=== PATIENT | female | born 1955 | race Caucasian/White ===

== ENCOUNTER → 2017-09-17 09:41 | Outpatient (CLI) | payer OTHER, SELFPAY ==
--- NOTE | 2017-09-17 09:47 | CT_ITS ---
STUDY: CT ABDOMEN AND PELVIS WITH AND WITHOUT CONTRAST REASON FOR EXAM: Female, 62 years old. Chronic hematuria. RADIATION DOSAGE (If Supplied By Facility): CTDIvol = ( 18.91 ) mGy, DLP = ( 2413.49 ) mGycm TECHNIQUE: Transaxial images were obtained from the dome of the diaphragm to the symphysis pubis without oral contrast. 100 ml of Isovue 300 contrast was administered. Sagittal and coronal images were reconstructed. Individualized dose optimization techniques were used for this CT. COMPARISON: Comparison is made with prior examination dated February 10, 2007. FINDINGS: Minimal linear scarring at the left lung base. The visualized portions of the heart are within normal limits. There is decreased attenuation of the liver consistent with steatosis. Normal gallbladder and extrahepatic biliary system. Normal spleen. Normal pancreas. There is a small, circumscribed, smooth, low attenuation left adrenal mass, consistent with an adrenal adenoma. This measures 1.5 cm. This is essentially unchanged as compared to prior study. Normal right adrenal gland. There is a 2.6 cm x 2.1 cm cyst in the midportion of the right kidney laterally. Stable right parapelvic cyst. Stable left parapelvic cysts. No abnormal renal calcification is seen. Normal visualized stomach. Normal small intestine. There are multiple colonic diverticula consistent with diverticulosis. There is non-visualization of the appendix. There is scattered atherosclerotic calcification of the abdominal aorta, without a demonstrated aneurysm. Normal inferior vena cava. Normal retroperitoneum. Normal urinary bladder. There is absence of the uterus consistent with a prior hysterectomy. Normal abdominal wall. Disc space narrowing and subchondral sclerosis at the L4-L5 level. CT/CT Abd/Pelvis W/WO Contrast IMPRESSION: Fatty infiltration of the liver. Bilateral parapelvic cysts. Right renal cyst. No renal calcification or ureteral calcification is seen. Electronically Signed: Abbe Read MD at 11:21 EDT Tel [phone], Service support ,
[2017-09-17 13:06] LABS: CREATININE FINGERSTICK 0.8 mg/dL (0.55-1.02); EGFR FINGERSTICK > 60.0000 mL/min (>60)
== END ==
PROVIDERS: Family Provider Family Medicine; PCP Family Medicine; Visit Provider Urology
DX: R31.0 Gross hematuria (principal)
CPT/HCPCS: 74178; Q9967

== ENCOUNTER → 2017-09-19 09:16 | Outpatient (CLI) | payer OTHER, SELFPAY ==
--- NOTE | 2017-09-19 | CYSPIN_PTH ---
PATIENT: TREMAINE MARTE LOC: LAB U#:[id number] AGE/SX: 69/F ROOM: RE09/19/[address]: Dr. Bev Healy MD : 1955 BED: DIS: SPEC #: [id number] RECD: 09/19/17 13:55 STATUS: TEJAL MIRELLA #: [id number] POOJA: 09/19/17 00:[address]: Bev Healy DEPT: CYTOLOGY RECD BY: Flo Alanis ENTERED: 09/19/17 13:55 SP TYPE: CYSPIN FL OTHR DR: Dr. Ford Goldman MD Tissues: Urine Procedures: Pap Stain (control) Special Stain Group II Cytospin Fluid HEADER OPERATION: Not noted PRE-OP DIAGNOSIS: Gross hematuria TISSUE SUBMITTED: Urine for cytology DIAGNOSIS CYTOLOGY Urine for cytology (cytospin): Negative for malignant cells. SJ:mi 09/22/17 CYTOLOGY STUDY Slides are reviewed. CYTOLOGY GROSS Received is 20 ml of gold clear fluid labeled with the patient's name and and designated per the requisition as urine. Submitted for cytology. 09/19/17 TC:5 CPT: 26302
[2017-09-19 09:29] LABS: Cytology, Body Fluid / CSF SEE PATHOLOGY REPORT
[2017-09-19 10:07] LABS: Potassium 4.8 mmol/L (3.5-5.1)
== END ==
PROVIDERS: Family Provider Family Medicine; PCP Family Medicine; Visit Provider Urology
DX: N32.89 Other specified disorders of bladder (principal); R31.0 Gross hematuria
CPT/HCPCS: 36415; 84132; 88108; 88313

== ENCOUNTER 2017-09-30 06:20 | Day surgery (SDC) | payer OTHER, SELFPAY ==
--- NOTE | 2017-09-23 06:52 | EKG12_ITS ---
Test Reason : PREOP Blood Pressure : / mmHG Vent. Rate : 071 BPM Atrial Rate : 071 BPM P-R Int : 192 ms QRS Dur : 078 ms QT Int : 400 ms P-R-T Axes : 067 037 050 degrees QTc Int : 434 ms Normal sinus rhythm Normal ECG Confirmed by RONN DISLA, TAI ([id number]), editorial assistant CAROLYN WHEATLEY ([id number]) on 09/24/2017 2:08:28 PM Referred By: Bev Healy Confirmed By:TAI BRODY MD
[2017-09-23 07:13] LABS: Absolute Lymphocyte Count 2.92 X10^3/ul (0.83-4.51); Absolute Neutrophil Count 5.3 X10^3/uL (2.0-7.7); Basophil# 0.03 X10^3/uL; Basophil% 0.3 % (0-1); Eosinophil# 0.39 X10^3/uL; Eosinophils% 4.1 % (0-5); Hematocrit 41.4 % (37-47); Hemoglobin 13.9 g/dl (12.0-15.0); Lymphocyte # 2.92 X10^3/ul (4.0); Lymphocyte % 30.5 % (19-41); Mean Corp Hgb Conc 33.6 g/gl (32-36); Mean Corpuscular Hgb 31.6 pg (27.0-32.0); Mean Corpuscular Volume 94.1 fL (81-99); Mean Platelet Vol. 9.6 fl (6.2-12.0); Monocyte# 0.96 X10^3/uL; Neutrophil # 5.26 X10^3/uL (2.7-7.7); POSITIVE COUNT NO; POSITIVE DIFFERENTIAL NO; POSITIVE MORPHOLOGY NO; Platelet Count 341 K/mm3 (150-450); RBC Distribution Width CV 12.8 % (11.6-14.6); RBC Distribution Width SD 44.2 fl (35.1-43.9); White Blood Count 9.6 K/mm3 (4.4-11.0)
[2017-09-23 07:17] LABS: Color, Urine Yellow (Yellow); Glucose, Dipstick NEGATIVE (Normal); Ketone-Dipstick Negative (Negative); Leukocyte Esterase-Dipstick Negative /ul (Negative); Nitrite-Dipstick Negative (Negative); Occult Blood-Urine 25 /ul (Negative); Protein-Dipstick Negative (Negative); Specific Gravity, Urine 1.015 (1.002-1.030); Urine Bilirubin Dipstick Negative (Negative); Urine Clarity Clear (Clear); Urine Urobilinogen Normal (Normal)
[2017-09-23 07:46] LABS: Anion Gap 6 (5-15); BUN 12 mg/dL (7-18); BUN/Creat Ratio 15.1 RATIO (10-20); Calcium,Total 8.8 mg/dL (8.5-10.1); Chloride 106 mmol/L (98-107); EST Glomerular Filtration Rate 78 mL/min (>60); Est Glom Filt Rate - Afr Amer 94 mL/min (>60); Glucose 104 mg/dL (74-106); Potassium 4.1 mmol/L (3.5-5.1); Sodium Level 140 mmol/L (136-145)
[2017-09-27 09:09] LABS: Cortisol, Urinary Free 15 ug/L (Undefined)
[2017-09-29 12:29] LABS: Cortisol, Free 24Ur 23 ug/24 hr (0-50)
--- NOTE | 2017-09-30 | IMM_PTH ---
PATIENT: TREMAINE MARTE [place] [facility] [place][id number] AGE/SX: 62/F ROOM: RE09/30/[address]: Dr. Bev Healy MD : 1955 BED: DIS: 09/30/2017 SPEC #: [id number] RECD: 10/01/17 14:02 STATUS: TEJAL RELondon #: [id number] POOJA: 09/30/17 00:[address]: Bev Healy DEPT: IMMUNOHISTOCHEMISTRY RECD BY: Alanis Harden ENTERED: 10/01/17 14:04 SP TYPE: IMMUNO OTHR DR: Dr. Ford Goldman MD Tissues: Urinary bladder, NOS Procedures: CK20 (add) P53 (add) CK7 (initial) PHYSICIAN & INSTITUTION [place] [id number] SPECIMEN INFORMATION: Tissue Source: Bladder biopsy Clinical Info: Bladder lesion Specimen Number: [id number] CPT code: 83134, 87579 x2 METHODOLOGY: Deparaffinized sections of prefer/formalin-fixed tissue or PAP/DQ stained slides are incubated with monoclonal/polyclonal antibodies/oligonucleotide probes. Localization is made via biotin free immunoperoxidase method. Appropriate controls are performed and reacted as expected. Results on target cell population are indicated in the following table: RESULTS: ANTIBODY / CLONE RESULT CK7 (OV-TL12/30) positive CK20 (KS20.8) negative P53 (DO-7) positive These tests were developed and their performance characteristics determined by [facility]. They may not have been cleared or approved by the U.S. Food and Drug Administration. The FDA has determined that such clearance or approval is not necessary. 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 GISELLE:mi 10/02/17
[2017-09-30 06:37] VITALS: BP 133/79; PULSE 80; RESP 14; TEMP 36.1; O2SAT 97; BMI 28.8
--- NOTE | 2017-09-30 08:00 | BLA_PTH ---
PATIENT: TREMAINE MARTE [place]: [facility] [place][id number] AGE/SX: 62/F ROOM: RE09/30/[address]: Dr. Bev Healy MD : 1955 BED: DIS: 09/30/2017 SPEC #: [id number] RECD: 09/30/17 10:23 STATUS: TEJAL MIRELLA #: [id number] POOJA: 09/30/17 08:[address]: Bev Healy DEPT: SURGICAL PATHOLOGY RECD BY: Ross Bertrand ENTERED: 09/30/17 11:46 SP TYPE: BLADDER BX OTHR DR: Dr. 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 See comment. SJ:mi 10/01/17 COMMENT Immunohistochemistry ([id number]) supports the above diagnosis. MICROSCOPIC DESCRIPTION Slides are reviewed. GROSS DESCRIPTION Received in fixative is one container labeled with the patient's name and designated bladder biopsy. The specimen consists of two irregular fragments of lui soft tissue each measuring 0.1 cm in greatest dimension. The specimen is totally submitted in one cassette. / GISELLE:mi 09/30/17 TC:5 CPT: 58176 ADDENDUM ADDENDUM ADDENDUM 10/06/2017 10:19 ADDENDUM 10/06/2017 10:19 ADDENDUM 10/06/2017 10:19 ADDENDUM 10/06/2017 10:19 ADDENDUM 10/06/2017 10:19 Detrusor muscle is not present in the submitted specimen. This case is discussed with Dr. Bev Healy on 10/06/17.
[2017-09-30] MEDS: Cefazolin 2 GM in 0.9% Normal Saline 100 ML IV (08:07)
[2017-09-30] MEDS: Lubricating Jelly 60 GM Tube 30 GM TOPICAL (08:22)
[2017-09-30 08:41] VITALS: BP 102/72; BP 133/79; PULSE 80; RESP 16; TEMP 37.1; O2SAT 95
[2017-09-30 08:45] VITALS: BP 122/69; BP 133/79; PULSE 72; RESP 16; O2SAT 96
--- NOTE | 2017-09-30 08:57 | PCM.DC.URO ---
Discharge Activity: Return to Normal Activity - in 24 hours Call your doctor if you observe: Fever of 101 or Higher, Inability to urinate, Shortness of breath, Chest pain Allergies/Adverse Reactions: Allergies codeine Allergy (Verified 09/23/17 09:52) Unknown mannitol [From Reclast] Allergy (Verified 09/23/17 09:52) Other water for injection,sterile [From Reclast] Allergy (Verified 09/23/17 09:52) Other zoledronic acid [From Reclast] Allergy (Verified 09/23/17 09:52) Other flu vaccine Allergy (Uncoded 09/23/17 09:52) Unknown Medications to take at Discharge Zolmitriptan [Zomig] 1 tab PO PRN PRN 12/21/12 Amlodipine [Norvasc] 5 mg PO DAILY 09/23/17 Aspirin [Aspirin EC] 81 mg PO DAILY 09/23/17 Lorazepam [Ativan] 1 mg PO DAILY PRN PRN 09/23/17 Smz/Tmp Ds [Bactrim Ds] 1 tab PO BID 3 Days #6 tab 09/30/17 The following prescriptions were given: Smz/Tmp Ds [Bactrim Ds] 1 tab PO BID 3 Days #6 tab Primary Care Physician: Ford Goldman MD [Primary Care Provider] - Test Results: Test results from this visit will be discussed in further detail at your follow-up appointment, if applicable. Please Follow Up With: Bev Healy MD - in 1 week, call to make appt
[2017-09-30 09:00] VITALS: BP 115/71; BP 133/79; PULSE 69; RESP 16; O2SAT 94
--- NOTE | 2017-09-30 09:00 | DCINST_ITS ---
Discharge Activity: Return to Normal Activity - in 24 hours Call your doctor if you observe: Fever of 101 or Higher, Inability to urinate, Shortness of breath, Chest pain Allergies/Adverse Reactions: Allergies codeine Allergy (Verified 09/23/17 09:52) Unknown mannitol [From Reclast] Allergy (Verified 09/23/17 09:52) Other water for injection,sterile [From Reclast] Allergy (Verified 09/23/17 09:52) Other zoledronic acid [From Reclast] Allergy (Verified 09/23/17 09:52) Other flu vaccine Allergy (Uncoded 09/23/17 09:52) Unknown Medications to take at Discharge Zolmitriptan [Zomig] 1 tab PO PRN PRN 12/21/12 Amlodipine [Norvasc] 5 mg PO DAILY 09/23/17 Aspirin [Aspirin EC] 81 mg PO DAILY 09/23/17 Lorazepam [Ativan] 1 mg PO DAILY PRN PRN 09/23/17 Smz/Tmp Ds [Bactrim Ds] 1 tab PO BID 3 Days #6 tab 09/30/17 The following prescriptions were given: Smz/Tmp Ds [Bactrim Ds] 1 tab PO BID 3 Days #6 tab Primary Care Physician: Ford Goldman MD [Primary Care Provider] - Test Results: Test results from this visit will be discussed in further detail at your follow- up appointment, if applicable. Please Follow Up With: Bev Healy MD - in 1 week, call to make appt
--- NOTE | 2017-09-30 09:00 | PCM.IMDPSTOP ---
Immediate Post-Op Note Date of Procedure: 09/30/17 Primary Surgeon/Physician: Bev Healy MD furnace mason: Bev Healy Pre-Operative Diagnosis: bladder lesion, gross hematuria, recurrent urinary tract infections. Post-Operative Diagnosis: same as pre-op Surgery/Procedure Performed:: cystoscopy, bladder biopsy with fulguration Description of Surgical Findings:: Small left bladder wall lesion approximately 1 cm in size was biopsied with muscle and specimen and fulgurated for hemostasis and tissue treatment. Estimated Blood Loss: <5cc Specimen's removed: Bladder biopsy ?2 Type of Anesthesia:: General - Admit VTE Documentation VTE Mechan Device Prophylaxis: SCD's VTE Pharm Prophylaxis ordered?: No Reason prophylaxis not ordered:: Treatment Not Indicated
--- NOTE | 2017-09-30 09:03 | OP.PN_ITS ---
Immediate Post-Op Note Date of Procedure: 09/30/17 Primary Surgeon/Physician: Bev Healy MD utilization engineer: Bev Healy Pre-Operative Diagnosis: bladder lesion, gross hematuria, recurrent urinary tract infections. Post-Operative Diagnosis: same as pre-op Surgery/Procedure Performed:: cystoscopy, bladder biopsy with fulguration Description of Surgical Findings:: Small left bladder wall lesion approximately 1 cm in size was biopsied with muscle and specimen and fulgurated for hemostasis and tissue treatment. Estimated Blood Loss: <5cc Specimen's removed: Bladder biopsy ?2 Type of Anesthesia:: General - Admit VTE Documentation VTE Mechan Device Prophylaxis: SCD's VTE Pharm Prophylaxis ordered?: No Reason prophylaxis not ordered:: Treatment Not Indicated
--- NOTE | 2017-09-30 09:03 | PCM.OPRPT ---
Problem List (1) Lesion of bladder Status: Acute (2) Gross hematuria Status: Acute (3) Recurrent urinary tract infection Status: Acute Report of Operation Date of Procedure: 09/30/17 Pre-Operative Diagnosis: bladder lesion, gross hematuria, recurrent urinary tract infections. Post-Operative Diagnosis: same as pre-op Surgery/Procedure Performed:: cystoscopy, bladder biopsy with fulguration Description of Surgical Findings:: Small right bladder wall lesion approximately 1 cm in size was biopsied with muscle and specimen and fulgurated for hemostasis and tissue treatment. order processing clerk: Bev Healy Type of Anesthesia:: General Specimen's removed: Bladder biopsy ?2 Estimated Blood Loss (mL): <5cc Description of Procedure: The patient is a 62-year-old female seen in my office for evaluation of recurrent urinary tract infection, gross hematuria and a history of smoking. On evaluation with cystoscopy, a right bladder wall lesion was identified. After discussing all risks benefits and alternatives she agreed to proceed with surgical intervention with biopsy and fulguration. Patient was taken the operating room placed on the operating room table. Anesthesia monitored head neck area IV access and vital signs throughout the case. Once anesthesia was probably administered patient was placed in dorsal lithotomy position was prepped and draped in usual sterile fashion. Using a 70? lens a thorough cystoscopic evaluation was performed revealing only the right lateral wall lesion identified in the office. At this time using a 30? lens and a flexible biopsy forceps, 2 biopsies of this area were performed. The area of the biopsy and surrounding tissue was infiltrated for hemostatic control on tissue treatment. The patient tolerated the procedure well. Her bladder was then emptied and she was awakened and taken to recovery room in good condition. There were no complications during this procedure.
--- NOTE | 2017-09-30 09:07 | OP.PCM_ITS ---
Problem List (1) Lesion of bladder Status: Acute (2) Gross hematuria Status: Acute (3) Recurrent urinary tract infection Status: Acute Report of Operation Date of Procedure: 09/30/17 Pre-Operative Diagnosis: bladder lesion, gross hematuria, recurrent urinary tract infections. Post-Operative Diagnosis: same as pre-op Surgery/Procedure Performed:: cystoscopy, bladder biopsy with fulguration Description of Surgical Findings:: Small right bladder wall lesion approximately 1 cm in size was biopsied with muscle and specimen and fulgurated for hemostasis and tissue treatment. orderly: Bev Healy Type of Anesthesia:: General Specimen's removed: Bladder biopsy ?2 Estimated Blood Loss (mL): <5cc Description of Procedure: The patient is a 62-year-old female seen in my office for evaluation of recurrent urinary tract infection, gross hematuria and a history of smoking. On evaluation with cystoscopy, a right bladder wall lesion was identified. After discussing all risks benefits and alternatives she agreed to proceed with surgical intervention with biopsy and fulguration. Patient was taken the operating room placed on the operating room table. Anesthesia monitored head neck area IV access and vital signs throughout the case. Once anesthesia was probably administered patient was placed in dorsal lithotomy position was prepped and draped in usual sterile fashion. Using a 70 ? lens a thorough cystoscopic evaluation was performed revealing only the right lateral wall lesion identified in the office. At this time using a 30? lens and a flexible biopsy forceps, 2 biopsies of this area were performed. The area of the biopsy and surrounding tissue was infiltrated for hemostatic control on tissue treatment. The patient tolerated the procedure well. Her bladder was then emptied and she was awakened and taken to recovery room in good condition. There were no complications during this procedure.
[2017-09-30 09:11] VITALS: BP 124/79; BP 133/79; PULSE 67; RESP 16; TEMP 36.3; O2SAT 96
[2017-09-30 09:43] VITALS: BP 133/79
== END 2017-09-30 09:44 | disposition home or self-care (01) ==
LOC: SDC 06:21 → AC 06:21
PROVIDERS: Family Provider Family Medicine; PCP Family Medicine; Visit Provider Urology
PROC: 0TBB8ZX Excision of Bladder, Via Natural or Artificial Opening Endoscopic, Diagnostic (ICD-10-PCS; CPT 52204; principal; 2017-09-30 07:50)
DX: D41.4 Neoplasm of uncertain behavior of bladder (principal); Z87.440 Personal history of urinary (tract) infections; R31.0 Gross hematuria; Z79.82 Long term (current) use of aspirin; Z79.899 Other long term (current) drug therapy; F41.9 Anxiety disorder, unspecified; F32.9 Major depressive disorder, single episode, unspecified; G25.81 Restless legs syndrome; K58.9 Irritable bowel syndrome, unspecified; F17.200 Nicotine dependence, unspecified, uncomplicated; I10 Essential (primary) hypertension
CPT/HCPCS: 00910; 52204; 36415; 80048; 81002; 82530; 85025; 87086; 87088; 88305; 88341; 88342; 93005; J7120; J2405

== ENCOUNTER → 2018-01-22 10:19 | Outpatient (CLI) | payer OTHER, SELFPAY ==
--- NOTE | 2018-01-22 10:22 | BI_ITS ---
MAMMOGRAPHY - BILATERAL SCREENING REASON FOR EXAM: Female, 62 years old. Routine annual screening examination. PERTINENT HISTORY: Non-contributory. TECHNIQUE: Digital bilateral breast jl (3D mammographic acquisition) in the CC and MLO projections. 2-D mediolateral oblique (MLO) and craniocaudad (CC) views of both breasts were obtained. CAD: Full Field Digital Mammography with Computer Added Detection was performed. COMPARISON: Comparison made with prior study dated August 26, 2013 and March 06, 2010. FINDINGS: Breast Composition: There are scattered areas of fibroglandular density. There are no dominant masses or suspicious calcifications. A tissue clip marker is seen in the deep upper lateral aspect of the right breast. No other significant abnormalities are identified. There has been no significant change since the prior study. BI/SCREENING MAMM (CAD), BILAT IMPRESSION: Stable bilateral screening mammogram. Yearly follow-up mammogram recommended. (A) ASSESSMENT CATEGORY: BIRADS Category 2: Benign. A letter regarding these results will be sent to the patient by the facility within 30 days. Approximately 10% of breast cancers are not detected by mammography. A normal mammogram should not delay biopsy of a clinically suspicious abnormality. [id number] Electronically Signed: Abbe Read MD at 11:09 EST Tel [phone], Service support ,
== END ==
PROVIDERS: Family Provider Family Medicine; PCP Family Medicine; Referring Provider Family Medicine; Visit Provider Family Medicine
DX: Z12.31 Encounter for screening mammogram for malignant neoplasm of breast (principal)
CPT/HCPCS: 77063; 77067

== ENCOUNTER → 2019-01-21 13:22 | Outpatient (CLI) | payer OTHER, SELFPAY ==
[2019-01-21 15:39] LABS: Absolute Lymphocyte Count 3.55 X10^3/uL (0.83-4.51); Absolute Neutrophil Count 7.2 X10^3/uL (2.0-7.7); Basophil# 0.04 X10^3/uL; Basophil% 0.3 % (0-1); Eosinophil# 0.22 X10^3/uL; Eosinophils% 1.8 % (0-5); Hematocrit 39.7 % (37-47); Lymphocyte # 3.55 X10^3/ul (4.0); Lymphocyte % 29.7 % (19-41); Mean Corp Hgb Conc 32.7 g/dL (32-36); Mean Corpuscular Hgb 31.4 pg (27.0-32.0); Mean Corpuscular Volume 95.9 fL (81-99); Mean Platelet Vol. 10.6 fl (6.2-12.0); Monocyte# 0.92 X10^3/uL; Monocyte% 7.7 % (0-10); NRBC Flagged by Analyzer 0 % (0-5); Neutrophil # 7.19 X10^3/uL (2.7-7.7); Neutrophil % 60.2 % (47-70); Platelet Count 187 K/mm3 (150-450); RBC Distribution Width CV 13.2 % (11.6-14.6); RBC Distribution Width SD 46.2 fl (35.1-43.9); Red Blood Count 4.14 M/mm3 (4.2-5.4)
[2019-01-21 16:00] LABS: Anion Gap 9 (5-15); BUN 16 mg/dL (7-18); BUN/Creat Ratio 19.8 RATIO (10-20); Calcium,Total 8.5 mg/dL (8.5-10.1); Chloride 104 mmol/L (98-107); Creatinine, Serum 0.81 mg/dL (0.55-1.02); EST Glomerular Filtration Rate 76 mL/min (>60); Est Glom Filt Rate - Afr Amer 92 mL/min (>60); Glucose 125 mg/dL (74-106); Magnesium 2.2 mg/dL (1.6-2.6); Potassium 3.6 mmol/L (3.5-5.1); Sodium Level 140 mmol/L (136-145); T4 Free Direct 1.09 ng/dL (0.76-1.46); Thyroid Stim Hormone (TSH) 1.29 uIU/mL (0.358-3.74)
== END ==
PROVIDERS: Family Provider Family Medicine; PCP Family Medicine; Visit Provider Family Medicine
DX: R00.2 Palpitations (principal); S21.009A Unspecified open wound of unspecified breast, initial encounter; L02.91 Cutaneous abscess, unspecified
CPT/HCPCS: 36415; 80048; 83735; 84439; 84443; 85025; 87070; 87075; 87077; 87186; 87205

== ENCOUNTER → 2019-04-29 11:37 | Outpatient (CLI) | payer OTHER, SELFPAY | PROVIDERS: PCP Family Medicine; Visit Provider Family Medicine | DX: N61.1 Abscess of the breast and nipple (principal) | CPT/HCPCS: 87070; 87075; 87077; 87186; 87205 ==

== ENCOUNTER → 2019-06-09 | Outpatient (CLI) | payer OTHER, SELFPAY | END | disposition home or self-care (01) | LOC: LABSPEC 15:24 | PROVIDERS: Referring Provider Family Medicine; Visit Provider Family Medicine | DX: N61.0 Mastitis without abscess (principal); N61.1 Abscess of the breast and nipple | CPT/HCPCS: 87070; 87075; 87205 ==

== ENCOUNTER → 2019-07-16 | Outpatient (CLI) | payer OTHER, SELFPAY | END | disposition home or self-care (01) | LOC: LABSPEC 09:47 | PROVIDERS: PCP Family Medicine; Referring Provider Family Medicine; Visit Provider Family Medicine | DX: Z03.818 Encounter for observation for suspected exposure to other biological agents ruled out (principal); Z20.828 Contact with and (suspected) exposure to other viral communicable diseases | CPT/HCPCS: 87635; G2023; U0004 ==

== ENCOUNTER → 2019-11-01 11:43 | Outpatient (CLI) | payer OTHER, SELFPAY ==
[2019-11-01 11:40] VITALS: BMI 28.8
--- NOTE | 2019-11-01 11:44 | RAD_ITS ---
STUDY: X-RAY - NASAL BONES REASON FOR EXAM: Female, 64 years old. FALL. ABRASIONS ANTERIOR NOSE TECHNIQUE: 3 view(s) of the nasal bones. COMPARISON: None. FINDINGS: Normal nasal bones. Normal anterior nasal spine. There is no demonstrated soft tissue swelling. The remaining visualized osseous structures are normal. Normal visualized paranasal sinuses. RAD/Nasal Bones min 3 Views IMPRESSION: Normal x-ray examination of the nasal bones. Electronically Signed: Abbe Read, at 12:32 EDT , Service support ,
--- NOTE | 2019-11-01 11:44 | RAD_ITS ---
STUDY: X-RAY - RIGHT HAND REASON FOR EXAM: Female, 64 years old. FALL. PAIN IN THE HAND AND INTO WRIST TECHNIQUE: 3 view(s) of the hand. COMPARISON: None. FINDINGS: Normal radiocarpal articulation. Normal distal radioulnar joint. Normal visualized carpal bones. Normal carpal articulations Normal carpometacarpal articulation of the thumb. Normal second through fifth carpometacarpal joints. Normal metacarpi. Normal metacarpophalangeal joint of the thumb. Normal interphalangeal joint of the thumb. Normal proximal and distal phalanges of the thumb. Normal metacarpophalangeal joints of the second through fifth fingers. Normal proximal and distal interphalangeal joints of the second through fifth fingers. Normal phalanges of the second through fifth fingers. The soft tissue structures are unremarkable. RAD/Hand Min 3 Views IMPRESSION: Normal x-ray examination of the hand. Electronically Signed: Abbe Read, at 12:33 EDT , Service support ,
== END ==
PROVIDERS: PCP Family Medicine; Referring Provider Physician Assistant; Visit Provider Physician Assistant
DX: S00.83XA Contusion of other part of head, initial encounter (principal); S60.221A Contusion of right hand, initial encounter
CPT/HCPCS: 70160; 73130

== ENCOUNTER 2021-04-04 09:40 | Outpatient (CLI) | payer MEDICARE, SELFPAY | END 2021-04-04 23:59 | disposition short-term general hospital (02) | LOC: LABSPEC 04-05 09:40 | PROVIDERS: PCP Family Medicine; Visit Provider Family Medicine | DX: Z20.828 Contact with and (suspected) exposure to other viral communicable diseases (principal) | CPT/HCPCS: 87635; U0003; U0005 ==

== ENCOUNTER → 2021-12-27 | Outpatient (CLI) | payer MEDICARE, BC, SELFPAY ==
[2021-12-27 13:13] VITALS: BP 125/75; PULSE 78; RESP 16; TEMP 36.2; O2SAT 98; BMI 27.3
[2021-12-27] MEDS: DENOSUMAB 60 MG/ML SC (13:35)
== END | disposition home or self-care (01) ==
LOC: MEDOUTP 12:41
PROVIDERS: PCP Family Medicine; Referring Provider Family Medicine; Visit Provider Family Medicine
DX: M81.0 Age-related osteoporosis without current pathological fracture (principal)
CPT/HCPCS: 96372; J0897

== ENCOUNTER → 2022-01-03 | Outpatient (CLI) | payer MEDICARE, BC, SELFPAY ==
[2022-01-03 13:05] LABS: Erythrocyte Sedimentation Rate 23 mm/hr (0-30)
[2022-01-03 13:06] LABS: Absolute Lymphocyte Count 2.82 X10^3/uL (0.83-4.51); Absolute Neutrophil Count 5.5 X10^3/uL (2.0-7.7); Basophil# 0.04 X10^3/uL; Basophil% 0.4 % (0-1); Eosinophil# 0.14 X10^3/uL; Eosinophils% 1.5 % (0-5); Hematocrit 44.5 % (37-47); Lymphocyte # 2.82 X10^3/ul (0.83-4.51); Lymphocyte % 30.8 % (19-41); Mean Corp Hgb Conc 33.7 g/dL (32-36); Mean Corpuscular Hgb 31.8 pg (27.0-32.0); Mean Corpuscular Volume 94.5 fL (81-99); Mean Platelet Vol. 10.3 fl (6.2-12.0); Monocyte# 0.65 X10^3/uL; Monocyte% 7.1 % (0-10); NRBC Flagged by Analyzer 0 % (0-5); Neutrophil # 5.48 X10^3/uL (2.7-7.7); Platelet Count 366 K/mm3 (150-450); RBC Distribution Width CV 12.7 % (11.6-14.6); Red Blood Count 4.71 M/mm3 (4.2-5.4); White Blood Count 9.2 K/mm3 (4.4-11.0)
[2022-01-03 13:08] LABS: AST(SGOT) 12 U/L (15-37); Alanine Aminotransfer ALT/SGPT 27 U/L (13-56); Albumin, Serum 3.8 g/dL (3.2-5.0); Alkaline Phosphatase 102 U/L (45-117); Anion Gap 6 (5-15); BUN 11 mg/dL (7-18); BUN/Creat Ratio 15.3 RATIO (10-20); CRP 5.33 mg/L (0.0-3.0); Calcium,Total 8.6 mg/dL (8.5-10.1); Chloride 107 mmol/L (98-107); Creatinine, Serum 0.72 mg/dL (0.55-1.02); EST Glomerular Filtration Rate 86 mL/min (>60); Est Glom Filt Rate - Afr Amer 104 mL/min (>60); Glucose 100 mg/dL (74-106); LDH 170 U/L (84-246); Potassium 4.1 mmol/L (3.5-5.1); Protein, Total 7.8 g/dL (6.4-8.2); Sodium Level 138 mmol/L (136-145)
[2022-01-04 15:08] LABS: Endomysial Antibody IgA Negative (Negative)
[2022-01-05 09:48] LABS: Immunoglobulin A 235 mg/dL (87-352); t-Transglutaminase IgA <2 U/mL (0-3)
[2022-01-12 01:07] LABS: Albumin 3.8 g/dL (2.9-4.4); Alpha-1-Globulins 0.3 g/dL (0.0-0.4); Angiotensin Convert Enzyme 38 U/L (14-82); Cytoplasmic Ab (C-ANCA) <1:20 titer (Neg:<1:20); Gamma Globulin 0.9 g/dL (0.4-1.8); HEPATITIS B SURFACE AG Negative (Negative); Hep C Antibodies <0.1 s/co ratio (0.0-0.9); Hepatitis A IgM Antibody Negative (Negative); Hepatitis B Core AB IgM Negative (Negative); Immunoglobulin A 227 mg/dL (87-352); Immunoglobulin G 1001 mg/dL (586-1602); Immunoglobulin M 40 mg/dL (26-217); PROEL- TOTAL PROTEIN 7.4 g/dL (6.0-8.5)
[2022-01-12 11:53] LABS: Anti-Smooth Muscle ABS 8 Units (0-19)
[2022-01-12 11:54] LABS: Immunoglobulin E 17 IU/mL (6-495); Perinuclear Ab (P-ANCA) <1:20 titer (Neg:<1:20)
[2022-01-12 17:07] LABS: Anti-Centromere B Ab <0.2 AI (0.0-0.9); Anti-Chromatin <0.2 AI (0.0-0.9); Anti-Jo <0.2 AI (0.0-0.9); Anti-Scleroderma-70 AB <0.2 AI (0.0-0.9); Beef <0.10 kU/L (Class 0); Clam <0.10 kU/L (Class 0); Codfish <0.10 kU/L (Class 0); Corn <0.10 kU/L (Class 0); Egg, White <0.10 kU/L (Class 0); Egg, Whole <0.10 kU/L (Class 0); Milk (Cow) <0.10 kU/L (Class 0); Peanut <0.10 kU/L (Class 0); Pork <0.10 kU/L (Class 0); RNP Ab 0.2 AI (0.0-0.9); SCALLOP <0.10 kU/L (Class 0); SESAME SEED <0.10 kU/L (Class 0); SJOGREN'S Anti-SS-A test < 0.2 AI (0.0-0.9); SJOGREN'S Anti-SS-B test < 0.2 AI (0.0-0.9); Shrimp <0.10 kU/L (Class 0); Smith Ab <0.2 AI (0.0-0.9); Soybean <0.10 kU/L (Class 0); Walnut, (Food) <0.10 kU/L (Class 0); Wheat <0.10 kU/L (Class 0)
[2022-01-13 11:33] LABS: Anti-Mitochondrial AB <20.0 Units (0.0-20.0); Anti-dsDNA Ab 1 IU/mL (0-9); Chocolate <0.10 kU/L (Class 0)
== END | disposition home or self-care (01) ==
LOC: LAB 11:20
PROVIDERS: PCP Family Medicine; Referring Provider Internal Medicine Gastroenterology; Visit Provider Internal Medicine Gastroenterology
DX: R19.7 Diarrhea, unspecified (principal)
CPT/HCPCS: 36415; 80053; 80074; 82164; 82784; 82785; 83516; 83615; 84165; 85025; 85652; 86003; 86005; 86140; 86225; 86235; 86255; 86256; 86334

== ENCOUNTER → 2022-01-15 | Outpatient (CLI) | payer MEDICARE, BC, SELFPAY ==
--- NOTE | 2022-01-15 09:18 | US_ITS ---
STUDY: ABDOMINAL ULTRASOUND - ELASTOGRAPHY REASON FOR VISIT: Female, 66 years old. Fatty infiltration of the liver. TECHNIQUE: Liver stiffness measurements were obtained on a DoubleDutch RS 85 ultrasound machine using a CA 1-7 probe following the SRU guidelines. 3 measurements were obtained using a 2-D-SWE method. The IQR/M was 19% suggesting a quality data set. TECHNICAL QUALITY: Adequate. COMPARISON: Comparison is made with prior study done earlier in the day. FINDINGS: Liver: Fatty infiltration of the liver. Median liver stiffness measured 4.3 kPa. US/Elastography Parenchyma/Organ IMPRESSION: Liver stiffness measures 4.3 kPa compatible with FO (Normal) Metavir score. Electronically Signed: Abbe Read MD at 12:22 EST ,
--- NOTE | 2022-01-15 09:18 | US_ITS ---
STUDY: ABDOMINAL ULTRASOUND - RIGHT UPPER QUADRANT REASON FOR VISIT: Female, 66 years old Diarrhea, Hepatic Steatosis TECHNIQUE: Ultrasound evaluation of the right upper quadrant was performed with real-time and static hubbard-scale imaging. TECHNICAL QUALITY: Adequate. COMPARISON: Comparison is made with prior study dated 05/05/2014. FINDINGS: Liver: The liver measures 13.9 cm. There is increased echogenicity consistent with fatty infiltration. The bile ducts are within normal limits. There is hepatic color flow. The direction of portal flow is hepatopetal. There is no demonstrated mass lesion. Gallbladder: Normal distended gallbladder. The gallbladder wall measures 1.5 mm. There is a negative sonographic Haas''s sign. There is no pericholecystic fluid. There are no gallstones. Common Bile Duct (C.B.D.): The common bile duct measures 2.7 mm. Pancreas: Normal size of the head, body and tail of the pancreas. There is increased echogenicity of the pancreas. There is no demonstrated pancreatic mass or cyst. Right Kidney: Normal size of the right kidney. The right kidney measures 12.1 cm x 5.2 cm x 5 cm. Normal renal cortex. The right cortex measures 1.2 cm. There is a 3.7 cm x 3.7 cm x 3.5 cm cyst in the upper pole of the right kidney. There is also evidence of 2.4 cm x 3.4 cm x 2.5 cm cyst in the lower pole. There is no right hydronephrosis. US/Abdomen Limited IMPRESSION: Fatty infiltration of the liver. Right renal cysts. Electronically Signed: Abbe Read MD at 12:21 EST ,
== END | disposition home or self-care (01) ==
LOC: US 09:17
PROVIDERS: PCP Family Medicine; Referring Provider Internal Medicine Gastroenterology; Visit Provider Internal Medicine Gastroenterology
DX: R19.7 Diarrhea, unspecified (principal); K76.0 Fatty (change of) liver, not elsewhere classified
CPT/HCPCS: 76705; 76981

== ENCOUNTER 2022-01-22 11:42 | Outpatient (CLI) | payer MEDICARE, BC, SELFPAY ==
--- NOTE | 2022-01-22 11:48 | NM_ITS ---
CLINICAL: 66-year-old female with history of clinical gastroparesis. SEMI-SOLID PHASE 99m Tc SULFUR COLLOID GASTRIC EMPTYING STUDY COMPARISON: Abdominal ultrasound report 01/15/2022 FINDINGS: The patient was administered 1.0 mCi of 99m Tc sulfur colloid mixed with oatmeal and consumed per os. Image acquisitions in the anterior-posterior projections were obtained for 60 minutes. There is prompt visualization of the stomach. There is no gastroesophageal reflux identified. The T ? emptying was calculated to be 27.52 minutes, (Normal: 12-56 minutes). NM/Gastric Emptying Study IMPRESSION: 1. NORMAL 99m Tc sulfur colloid semi-solid phase (oatmeal) gastric emptying imaging examination. A. There is normal and preserved semi-solid phase gastric emptying compared to normal controls. (Kalen et al, J Nucl Med Tech 38: 186, 2010). Electronically Signed: Bowen Hackett, at 20:28 EST ,
[2022-01-24 21:33] LABS: Calprotectin, Stool <16 ug/g (0-120)
== END 2022-01-22 23:59 | disposition home or self-care (01) ==
PROVIDERS: PCP Family Medicine; Visit Provider Internal Medicine Gastroenterology
DX: K31.84 Gastroparesis (principal); R19.7 Diarrhea, unspecified
CPT/HCPCS: 78264; 83630; 83993; A9541

== ENCOUNTER 2022-07-01 13:48 | Outpatient (CLI) | payer MEDICARE, BC, SELFPAY ==
[2022-07-01] MEDS: DENOSUMAB 60 MG/ML SC (14:19)
[2022-07-01 14:24] VITALS: BP 157/84; PULSE 79; RESP 14; TEMP 35.8; O2SAT 97; BMI 27.4
[2022-07-05 16:09] LABS: Pancreatic Elastase, Fecal 496 (>200)
[2022-07-06 22:06] LABS: Calprotectin, Stool 24 ug/g (0-120)
== END 2022-07-01 13:49 | disposition home or self-care (01) ==
LOC: MEDOUTP 13:48
PROVIDERS: Internal Medicine Gastroenterology; PCP Family Medicine; Referring Provider Family Medicine; Visit Provider Family Medicine
DX: M81.0 Age-related osteoporosis without current pathological fracture (principal); K58.0 Irritable bowel syndrome with diarrhea
CPT/HCPCS: 82653; 83630; 83993; 87177; 87209; 87329; 87493; 87506; 96372; J0897

== ENCOUNTER 2023-01-23 13:10 | Outpatient (CLI) | payer MEDICARE, BC, SELFPAY ==
[2023-01-23 13:20] VITALS: BP 139/75; PULSE 87; RESP 16; TEMP 36.2; O2SAT 100
[2023-01-23] MEDS: DENOSUMAB 60 MG/ML SC (13:29)
== END 2023-01-23 13:11 | disposition home or self-care (01) ==
LOC: MEDOUTP 13:10
PROVIDERS: PCP Family Medicine; Referring Provider Family Medicine; Visit Provider Family Medicine
DX: M81.0 Age-related osteoporosis without current pathological fracture (principal)
CPT/HCPCS: 96372; J0897

== ENCOUNTER → 2023-02-27 | Outpatient (CLI) | payer MEDICARE, BC, SELFPAY ==
[2023-02-27 12:37] LABS: Absolute Lymphocyte Count 2.47 X10^3/uL (0.83-4.51); Absolute Neutrophil Count 7.2 X10^3/uL (2.0-7.7); Basophil# 0.03 X10^3/uL; Basophil% 0.3 % (0-1); Eosinophil# 0.11 X10^3/uL; Hematocrit 42.4 % (37-47); Lymphocyte # 2.47 X10^3/ul (0.83-4.51); Lymphocyte % 23.4 % (19-41); Mean Corpuscular Hgb 31.6 pg (27.0-32.0); Mean Corpuscular Volume 95.7 fL (81-99); Mean Platelet Vol. 9.7 fl (6.2-12.0); Monocyte# 0.77 X10^3/uL; Monocyte% 7.3 % (0-10); NRBC Flagged by Analyzer 0 % (0-5); Neutrophil # 7.16 X10^3/uL (2.7-7.7); Neutrophil % 67.7 % (47-70); Platelet Count 401 K/mm3 (150-450); RBC Distribution Width CV 13.1 % (11.6-14.6); RBC Distribution Width SD 46.6 fl (35.1-43.9); Red Blood Count 4.43 M/mm3 (4.2-5.4); White Blood Count 10.6 K/mm3 (4.4-11.0)
[2023-02-27 12:39] LABS: Color, Urine Yellow (Yellow); Glucose, Dipstick Normal (Normal); Ketone-Dipstick Negative (Negative); Leukocyte Esterase-Dipstick Negative /ul (Negative); Nitrite-Dipstick Negative (Negative); Occult Blood-Urine 10 /ul (Negative); Protein-Dipstick Negative (Negative); Urine Bilirubin Dipstick Negative (Negative); Urine Clarity Clear (Clear); Urine Urobilinogen Normal (Normal)
[2023-02-27 13:02] LABS: ALB/GLOB Ratio 0.9 RATIO (0.9-2.4); AST(SGOT) 17 U/L (15-37); Alanine Aminotransfer ALT/SGPT 26 U/L (13-56); Albumin, Serum 3.7 g/dL (3.2-5.0); Alkaline Phosphatase 77 U/L (45-117); Anion Gap 5 (5-15); BUN 13 mg/dL (7-18); BUN/Creat Ratio 17.7 RATIO (10-20); Calcium,Total 8.3 mg/dL (8.5-10.1); Chloride 108 mmol/L (98-107); Cholesterol 198 mg/dL (200); Creatinine, Serum 0.74 mg/dL (0.55-1.02); EST Glomerular Filtration Rate 84 mL/min (>60); Est Glom Filt Rate - Afr Amer 101 mL/min (>60); Globulin 3.9 g/dL (2.2-4.2); Glucose 100 mg/dL (74-106); High Density Lipoprotein 53 mg/dL; Protein, Total 7.6 g/dL (6.4-8.2); Sodium Level 141 mmol/L (136-145); Thyroid Stim Hormone (TSH) 1.04 uIU/mL (0.358-3.74); Triglycerides 90 mg/dL; Very Low Density Lipoprotein 18 mg/dL (5-40)
== END | disposition home or self-care (01) ==
LOC: BFHLAB 09:53
PROVIDERS: PCP Family Medicine; Visit Provider Family Medicine
DX: Z51.81 Encounter for therapeutic drug level monitoring (principal); E78.5 Hyperlipidemia, unspecified; D64.9 Anemia, unspecified
CPT/HCPCS: 36415; 80053; 80061; 81002; 84443; 85025

== ENCOUNTER → 2023-05-01 | Outpatient (CLI) | payer MEDICARE, BC, SELFPAY | END | disposition home or self-care (01) | LOC: BFHLAB 14:17 → LABSPEC 14:18 | PROVIDERS: PCP Family Medicine; Visit Provider Family Medicine | DX: R30.0 Dysuria (principal) | CPT/HCPCS: 87086 ==

== ENCOUNTER 2023-09-15 10:47 | Outpatient (CLI) | payer MEDICARE, BC, SELFPAY ==
[2023-09-15 10:56] VITALS: BP 148/82; PULSE 85; RESP 16; TEMP 36.6; O2SAT 94; BMI 27.4
[2023-09-15] MEDS: DENOSUMAB 60 MG/ML SC (11:18)
== END 2023-09-15 23:59 | disposition home or self-care (01) ==
LOC: MEDOUTP 10:48
PROVIDERS: PCP Family Medicine; Referring Provider Family Medicine; Visit Provider Family Medicine
DX: M81.0 Age-related osteoporosis without current pathological fracture (principal)
CPT/HCPCS: 96372; J0897

== ENCOUNTER 2024-06-14 10:04 | Outpatient (CLI) | payer MEDICARE, BC, SELFPAY ==
[2024-06-14 10:11] VITALS: BP 149/82; PULSE 86; RESP 16; O2SAT 98; BMI 27.4
[2024-06-14] MEDS: DENOSUMAB 60 MG/ML SC (10:17)
== END 2024-06-14 23:59 | disposition home or self-care (01) ==
LOC: MEDOUTP 10:05
PROVIDERS: PCP Family Medicine; Referring Provider Family Medicine; Visit Provider Family Medicine
DX: M81.0 Age-related osteoporosis without current pathological fracture (principal)
CPT/HCPCS: 96372; J0897

== ENCOUNTER → 2024-09-09 | Outpatient (CLI) | payer MEDICARE, BC, SELFPAY ==
[2024-09-09 18:46] LABS: AST(SGOT) 20 U/L (<=31); Alanine Aminotransfer ALT/SGPT 24 U/L (<=34); Albumin, Serum 4.3 g/dL (3.4-4.8); Alkaline Phosphatase 64 U/L (35-104); BUN 13 mg/dL (4-19); BUN/Creat Ratio 18.7 RATIO (10-20); Calcium,Total 8.8 mg/dL (7.6-11.0); Carbon Dioxide 21.3 mmol/L (21.0-32.0); Chloride 104 mmol/L (98-108); Cholesterol 206 mg/dL (<=200); Globulin 3.2 g/dL (2.2-4.2); Glucose 88 mg/dL (70-99); Potassium 3.9 mmol/L (3.3-5.1); Triglycerides 191 mg/dL
[2024-09-09 18:47] LABS: Anion Gap 13 (5-15); Low Density Lipoprotein Calc. 124 mg/dL; Very Low Density Lipoprotein 38 mg/dL (5-40); cholesterol:hdl ratio screen 4.74
[2024-09-09 18:55] LABS: Hematocrit 42.4 % (37-47); Hemoglobin 14.0 g/dL (12.0-15.0); Immature Granulocytes Count 0.040 X10^3/uL (0.0-0.0); Mean Corp Hgb Conc 33.0 g/dL (32-36); Mean Corpuscular Volume 95.1 fL (81-99); Mean Platelet Vol. 9.8 fl (6.2-12.0); NRBC Flagged by Analyzer 0 % (0-5); Platelet Count 400 K/mm3 (150-450); RBC Distribution Width CV 13.1 % (11.6-14.6); RBC Distribution Width SD 45.7 fl (35.1-43.9); Red Blood Count 4.46 M/mm3 (4.2-5.4); White Blood Count 10.2 K/mm3 (4.4-11.0)
[2024-09-09 19:52] LABS: Free T3 3.3 pg/mL (2.18-3.98)
== END | disposition home or self-care (01) ==
LOC: BFHLAB 15:02
PROVIDERS: PCP Family Medicine; Visit Provider Family Medicine
DX: E78.5 Hyperlipidemia, unspecified (principal); D64.9 Anemia, unspecified; E03.9 Hypothyroidism, unspecified; Z51.81 Encounter for therapeutic drug level monitoring
CPT/HCPCS: 36415; 80053; 80061; 84439; 84443; 84481; 85025; 86376; 86800